=== PATIENT | male | born 1950 | race Caucasian/White ===

== ENCOUNTER → 2018-01-17 | Outpatient (CLI) | payer MEDICARE, OTHER ==
[~2018-01-17] MED LIST: OMNIPAQUE 350 MG/ML, 100ML BOTTLE ONE
== END | disposition home or self-care (01) ==
LOC: PETCFH 11:16
PROVIDERS: ATTEND Urology
DX: N13.30 Unspecified hydronephrosis (principal); N13.4 Hydroureter; N32.89 Other specified disorders of bladder; C61 Malignant neoplasm of prostate
CPT/HCPCS: 74177; 78306; 82565; A9503; Q9967

== ENCOUNTER 2018-07-16 12:23 | Day surgery (SDC) | payer MEDICARE, OTHER ==
[2018-07-16 13:04] VITALS: BP 92/58
[2018-07-16] MEDS ORDERED: FENTANYL PF 100 MCG/2ML ONE (13:29)
[2018-07-16] MEDS ORDERED: FLUMAZENIL 0.1 MG/1 ML, 5ML ONE (13:29)
[2018-07-16] MEDS ORDERED: MIDAZOLAM 1 MG/ML, 5ML ONE (13:29)
[2018-07-16] MEDS ORDERED: NALOXONE 1 MG/ML, 2ML ONE (13:30)
[2018-07-16] MEDS ORDERED: CEFAZOLIN PMX 1GM/50ML 50 ML ONE (13:30)
[2018-07-16] MEDS ORDERED: VISIPAQUE 270 MG/ML, 50ML BOTTLE ONE (14:30)
== END 2018-07-16 16:50 | disposition home or self-care (01) ==
LOC: OUT 12:23
PROVIDERS: ATTEND Urology
DX: R33.9 Retention of urine, unspecified (principal); Z85.51 Personal history of malignant neoplasm of bladder; N40.0 Benign prostatic hyperplasia without lower urinary tract symptoms; E11.9 Type 2 diabetes mellitus without complications; I10 Essential (primary) hypertension; E78.00 Pure hypercholesterolemia, unspecified; Z87.891 Personal history of nicotine dependence
CPT/HCPCS: 51102; 75989; 76942; 82962; 99156; 99157; C1725; C1769; J0690; J2250; J3010; Q9966; J2310